=== PATIENT | female | born 2000 | race Caucasian/White ===

== ENCOUNTER 2020-07-05 | Inpatient (IN) ==
[2020-07-05] MEDS ORDERED: DEXTROSE 5%-LACTATED RINGERS 1,000 ML IV PRN (00:07)
[2020-07-05] MEDS ORDERED: ONDANSETRON 4 MG TAB.RAPDIS PO PRN (00:07)
[2020-07-05] MEDS ORDERED: OXYTOCIN/0.9 % SODIUM CHLORIDE 30 UNITS/500 ML BAG IV ONE ×2 (00:07→23:27)
[2020-07-05] MEDS ORDERED: MISOPROSTOL 100 MCG TABLET VG PRN (00:07)
[2020-07-05] MEDS: RINGER'S SOLUTION,LACTATED 1,000 ML IV ONE ×3 (01:28→12:31)
--- NOTE | 2020-07-05 03:10 | HP ---
Chief Complaint - Chief Complaint Date of Service: 07/05/20 Time of Service: 03:04 Chief Complaint: induction of labor History of Present Illness: 19 yo at 39 5/7 weeks presents to L&D for elective induction of labor after being thoroughly counseled on the r/b/a. Patient has been having mild contractions q5-6 min just before presenting to L&D. This complicated by anemia and varicella non-immune. Rh positive Rubella immune GBS negative. Medical History (Last Reviewed 07/05/20 @ 03:07 by Marvin Nova DO) Body piercing Onset Date: Unknown Hypoglycemia Onset Date: ~2017 Palpitations Onset Date: Unknown multiple cardiac work-ups Tattoos Onset Date: Unknown Seasonal asthma Onset Date: Unknown Surgical History: Surgical History (Last Reviewed 07/05/20 @ 03:07 by Marvin Nova DO) No significant past surgical history Family History: Family History (Last Reviewed 07/05/20 @ 03:07 by Marvin Nova DO) Mother Hypertension Father Hyperlipemia Social History: (Last Reviewed 07/05/20 @ 03:07 by Marvin Nova DO) Social History: adopted: No usp: No Marital status: Single household members: significant other number of children: 0 current occupational status: employed current occupation: [employer] current occupational exposures/hazards: No Highest education level completed: some college, no degree Sexually Active: Yes Service: No Tobacco: Smoking Status: Former smoker how long ago did patient quit smoking: pt currently vapes Alcohol: alcohol intake: former details: No alchol since + UPT. Previous 2-3/year Substance Use: substance use type: does not use Dietary Habits: caffeine: Yes caffeine comment: 2/day Type: coffee Exercise: frequency: does not exercise Gail/Holiness: agree to transfusion: Yes Review Of Systems (GEN) - Review of Systems Generalized/Overall Review: Present: No Symptoms Reported EENTM: Present: No Symptoms Reported Respiratory: Present: No Symptoms Reported Cardiac: Present: No Symptoms Reported Abdominal: Present: Other - mild contractions Genitourinary: Present: No Symptoms Reported Musculoskeletal: Present: No Symptoms Reported Neurological: Present: No Symptoms Reported Skin: Present: No Symptoms Reported Endocrine: Present: No Symptoms Reported Allergies/Adverse Reactions: Allergies Allergy/AdvReac Type Severity Reaction Status Date / Time No Known Allergies Allergy Verified 07/05/20 00:08 Home Medications: HOME MEDICATIONS prenat.vits,fernando,gwi-qcsq-uzagg 1 tab PO DAILY 12/07/19 [Last Taken Unknown] Exam - Exam Vital Signs: Vital Signs - Last Taken Temp 36 C 07/05/20 01:06 Pulse 89 07/05/20 01:06 Resp 16 07/05/20 01:06 BP 123/83 07/05/20 01:06 Pulse Ox 99 07/05/20 01:06 Constitutional: Present: Alert, Oriented x3, Cooperative, No distress ENT Exam: Present: hearing grossly normal Neck: Present: non-tender. Absent: thyromegaly Breasts: Present: Exam deferred Respiratory: Present: lungs clear, no respiratory distress Cardiovascular/Chest: Present: normal peripheral pulses, regular rate, rhythm Abdomen: Present: soft, nontender, no rebound tenderness, other - gravid /Rectal: Present: Other - Cervix 2/50/-2 Extremity: Present: no pedal edema, no calf tenderness Skin Exam: Present: normal color, warm/dry, no cyanosis Neurologic: Present: alert, normal mood/affect, oriented x 3 Appearance: Present: appropriate appearance, appropriate insight Eye contact: Present: cooperative, good eye contact Thoughts: Present: normal thought pattern, normal mood /affect Assessment/Plan - Assessment/Plan (1) Encounter for elective induction of labor Assessment: Admit for pitocin induction of labor. Epidural PRN. Problem: Acute (2) Susceptible to varicella (non-immune), currently Problem: Acute
[2020-07-05] MEDS ORDERED: NALOXONE HCL 1 MG/1 ML SYRG IV PRN (12:20)
[2020-07-05] MEDS ORDERED: BUPIVACAINE HCL/0.9 % NACL/PF 250 ML EP PRN (12:20)
[2020-07-05] MEDS ORDERED: ONDANSETRON HCL/PF 2 MG/ML VIAL IV PRN (12:20)
[2020-07-05] MEDS ORDERED: fentaNYL CITRATE/PF 50 MCG/ML AMPUL IT SCH (12:30)
--- NOTE | 2020-07-05 14:25 | ANES ---
Anesthesia Pre Procedure Eval Vitals/Labs: Last Vital Signs Temp 36.7 C 07/05/20 10:53 Pulse 71 07/05/20 10:53 Resp 18 07/05/20 10:53 BP 119/76 07/05/20 10:53 Pulse Ox 98 07/05/20 10:53 HOME MEDICATIONS prenat.vits,fernando,mgs-vtwl-prhth 1 tab PO DAILY 12/07/19 [Last Taken Unknown] Allergies/Adverse Reactions: Allergies Allergy/AdvReac Type Severity Reaction Status Date / Time No Known Allergies Allergy Verified 07/05/20 00:08 - Planned Procedure Planned Procedure: elective induction 39 + 5 days Medication List Reviewed:: Yes Allergies Verified: Yes Medical History (Last Reviewed 07/05/20 @ 14:24 by Otis Dietz CRNA) Body piercing Onset Date: Unknown Hypoglycemia Onset Date: ~2017 Palpitations Onset Date: Unknown multiple cardiac work-ups Tattoos Onset Date: Unknown Seasonal asthma Onset Date: Unknown Surgical History (Last Reviewed 07/05/20 @ 14:24 by Otis Dietz CRNA) No significant past surgical history Family History (Last Reviewed 07/05/20 @ 14:24 by Otis Dietz CRNA) Mother Hypertension Father Hyperlipemia - Family Anesthesia History Family History:: no untoward family reactions to anesthesia - Airway/Neck/Teeth Within Normal Limits:: Yes Teeth Condition: intact Neck Exam: full range of motion Mallampatti Score: 2 Thyromental (T-M) distance: > 6 cm Mandibulo Hyoid distance: > 3 cm - Respiratory Respiratory Physical: lungs clear Smoking Status: Former smoker Sleep Apnea currently treated: No Sleep Apnea by current assessment: No - Cardiovascular Tolerate Activity: Good Heart Sounds: S1 & S2, Regular - Gastrointestinal NPO since: 0900 - Anesthesia Assessment and Plan ASA Class: PS, II, E Anesthesia Type Plan: Epidural Planned difficult intubation/equipment available: No
--- NOTE | 2020-07-05 14:25 | ANES ---
Post Anesthesia Assessment - Vital Signs Vitals: Last Vital Signs Temp 36.7 C 07/05/20 10:53 Pulse 71 07/05/20 10:53 Resp 18 07/05/20 10:53 BP 119/76 07/05/20 10:53 Pulse Ox 98 07/05/20 10:53 Airway Patency: Normal - Mental Status Level Of Consciousness: Awake - Pain Level Pain Score: 2 - N/V Assessment Nausea/Vomiting Presence: None Dehydration:: No
--- NOTE | 2020-07-05 14:26 | ANES ---
Post Anesthesia Discharge - Transfer of Care Transfer of Care handoff given to nurse: Yes - Anesthesia Post Op Note Anesthesia Post Op Note: Care transferred to OB RN
--- NOTE | 2020-07-05 14:27 | ANES ---
Anesthesia Procedure Note Procedure Note: ANESTHESIA PROCEDURE NOTE Date of Procedure: 07/05/2020 Time of procedure: 1220. Performed by: Man Dietz CRNA Product/Industry Consultant: None. Preprocedure diagnosis: Active labor. Post procedure diagnosis: Same. Procedure: Insertion of labor epidural. Indications: The patient is a 19-year-old prima para female in active labor requesting labor epidural for pain management. Findings: See below. Details of the procedure: The patient was placed in a sitting position. Back was prepped with DuraPrep. Patient was then draped in a sterile fashion. Lidocaine 1% was infiltrated to the skin and subcutaneous tissues at the level of the L3 4 interspace. The epidural space was identified using a 18-gauge Tuohy needle with [id number] technique. 20 mcg fentanyl was given intrathecally using a 27 ga. spinal needle. Epidural catheter was inserted without difficulty. Negative test dose was elicited using 5 mL of 1.5% preservative-free lidocaine plus epinephrine 1 200,000. The epidural catheter was then taped and secured in place. EBL: Minimal. Fluids: N/A. Specimen: N/A. Post procedure condition: The patient tolerated the procedure well. No complications were noted. Thank you for this consultation. Renteria CRNA
--- NOTE | 2020-07-05 17:06 | PN ---
Progess Note - Interim Date: 07/05/20 Time: 16:30 Narrative: 07/05/20 17:04 Patient comfortable with epidural Vital signs stable. Pitocin at 8 mu/min. FHT: 140 baseline, reassuring contractions q 2-4 min Cervix: 4/50/-2, AROM-clear at 1147. Impression: Intrauterine at 39 5/7 weeks elective induction of labor. Plan: Continue present plan
--- NOTE | 2020-07-05 23:25 | OR ---
Operative Report - Dictated Report Narrative: Spontaneous vaginal delivery of vigorously crying viable female at 2301 on 07/05/2020 with Apgars 9 and 9, weighing 2456 g in VINEET position with hand at face. Cord clamping delayed approximately 1 minute Placenta delivered complete, intact, with three vessel cord Estimated blood loss: 100 mL Anesthesia: Epidural Lacerations: 3 cm second-degree vaginal laceration repaired with 3-0 Vicryl Rapide History for MU History for Definition: * The number of deliveries resulting in a live the patient experienced prior to current hospitalization * The previous delivery of live twins or any live multiple gestation is considered one live event. *If primagravida or nulliparous is documented select zero for the number of previous live births. Live Events: Live Events: 0
[2020-07-05] MEDS ORDERED: ACETAMINOPHEN 325 MG TABLET PO PRN (23:27)
[2020-07-05] MEDS ORDERED: oxyCODONE HCL/ACETAMINOPHEN 1 TAB TABLET PO PRN (23:27)
[2020-07-05] MEDS ORDERED: HYDROCORTISONE 30 APPL TUBE TP PRN (23:27)
[2020-07-05] MEDS ORDERED: SENNOSIDES 8.6 MG TABLET PO PRN (23:27)
[2020-07-05] MEDS ORDERED: BENZOCAINE/MENTHOL 81 SPRAY CAN TP PRN (23:27)
[2020-07-05] MEDS ORDERED: BISACODYL 10 MG SUPP.RECT RC PRN (23:27)
[2020-07-05] MEDS ORDERED: GLYCERIN/WITCH HAZEL LEAF 40 APPL BOX TP PRN (23:27)
[2020-07-06] MEDS: IBUPROFEN 800 MG TABLET PO PRN ×3 (03:43→16:44)
[2020-07-06] MEDS: DOCUSATE SODIUM 100 MG CAPSULE PO SCH ×2 (09:07→20:53)
[2020-07-06] MEDS: PRENATAL VITS96/IRON FUM/FOLIC 1 TAB TABLET PO SCH (09:07)
--- NOTE | 2020-07-06 13:10 | PN ---
Subjective - Date and Time Seen Date: 07/06/20 Time: 08:40 Objective - Vitals Vitals: Last Vital Signs Temp 36.5 C 07/06/20 08:07 Pulse 72 07/06/20 08:07 Resp 18 07/06/20 08:07 BP 110/72 07/06/20 08:07 Pulse Ox 99 07/06/20 08:07 Patient denies complaints. Breast-feeding. Lochia wnl abdomen - soft, nontender Uterus -firm, at umbilicus - 1 No calf tenderness Impression: day #1 - s/p spontaneous vaginal delivery. Plan: Continue routine care Cauti Physician Documentation - Urinary Catheter Management Urethral (Lindsey) Date of Insertion: 07/05/20 Time of Insertion: 13:30 Date of Removal: 07/05/20 Time of Removal: 22:50 Assessment/Plan - Problems/Diagnosis (1) Encounter for elective induction of labor Problem: Acute (2) Susceptible to varicella (non-immune), currently Problem: Acute
[2020-07-07] MEDS: IBUPROFEN 800 MG TABLET PO PRN ×2 (03:13→10:07)
[2020-07-07 07:05] VITALS: BP 116/78
[2020-07-07] MEDS: DOCUSATE SODIUM 100 MG CAPSULE PO SCH (10:06)
[2020-07-07] MEDS: PRENATAL VITS96/IRON FUM/FOLIC 1 TAB TABLET PO SCH (10:07)
--- NOTE | 2020-07-07 12:38 | PN ---
Subjective - Date and Time Seen Date: 07/07/20 Time: 12:38 Objective - Vitals Vitals: Last Vital Signs Temp 36.8 C 07/07/20 07:01 Pulse 80 07/07/20 07:01 Resp 18 07/07/20 07:01 BP 116/78 07/07/20 07:01 Pulse Ox 97 07/07/20 07:01 Patient denies complaints. Breast-feeding Lochia wnl abdomen - soft, nontender Uterus -firm, at umbilicus - 2 No calf tenderness Impression: day #2 - s/p spontaneous vaginal delivery. Plan: Routine discharge instructions Cauti Physician Documentation - Urinary Catheter Management Urethral (Lindsey) Date of Insertion: 07/05/20 Time of Insertion: 13:30 Date of Removal: 07/05/20 Time of Removal: 22:50 Assessment/Plan - Problems/Diagnosis (1) Encounter for elective induction of labor Problem: Acute (2) Susceptible to varicella (non-immune), currently Problem: Acute
--- NOTE | 2020-07-07 12:51 | DS ---
OB Discharge Summary (1) Encounter for elective induction of labor Status: Resolved (2) Susceptible to varicella (non-immune), currently Status: Resolved Delivery Date: 07/05/20 Delivery Time: 23:01 :: 1 Para:: 1 Gestational weeks:: 39 Gestational days:: 5 Intrapartum Procedures: Spontaneous Vaginal Delivery, Delivered, Other - repair 3cm 2nd degree vaginal laceration /OP Complications: Other Discharge Diagnosis: Term -Delivered - Discharge Information Date of Discharge: 07/07/20 Hospital Course: Patient was admitted for elective induction which went uneventfully. course was uneventful as well. Discharge Location: Home Disposition: Home self-care Condition: Good Activity on Discharge:: Activity as tolerated Discharge Diet: General/regular food Additional Patient Instructions (free text): Carla will follow up with Dr. Nova on Tuesday August 01, 2000 at 9:15 am. Continue to take vitamins daily. Drink plenty of fluid, eat lots of fruits and vegetables and lean meat. Rest when your baby rests. Joelle will follow up with Dr. Bailey on Friday July 10, 2020 at 1:30 pm. Shay blood type is A positive and she has passed her hearing screen in both ears, she has passed her CHD and her Metabolic Screen has been drawn. Shay needs to breast feed every 2-3 hours, and when showing feeding cues. Shay weight today is 5# 4 oz. Her TCB was 4.8. Always use safe sleeping practices, always place Joelle on her back to sleep, in her own bed. No co-sleeping, no bumper pad, stuffed animals, pillows or heavy blankets in sleeping area. Thank you for choosing [facility] for your special event. If you have any concerns, or questions, please call the [facility] [phone], [facility] [phone] or [facility] [phone]. Prescriptions (Any new or edited meds): Ferrous Sulfate 325 mg PO DAILY #60 tablet Ibuprofen [Motrin] 200 - 800 mg PO Q6H PRN #100 tab PRN Reason: Pain Complete Home Medications List: Complete Home Medication List: prenat.vits,fernando,ylv-mxgw-ouesu 1 tab PO DAILY 12/07/19 Ferrous Sulfate 325 mg PO DAILY #60 tablet 07/07/20 Ibuprofen [Motrin] 200 - 800 mg PO Q6H PRN #100 tab 07/07/20 - Plan Discharge to:: Home Follow up in office in:: 3-4 weeks - Information Weight (Grams): 2,456 Sex: Female Score 1 min: 9 Score 5 min: 9 Circumcision: Not Applicable Complications: None Other Complications: left hand presentation
== END 2020-07-07 13:30 | disposition home or self-care (01) | DRG 807 ==
LOC: OB
PROVIDERS: ADMIT Obstetrics & Gynecology; ATTEND Obstetrics & Gynecology